=== PATIENT | male | born 1995 | race Caucasian/White ===

== ENCOUNTER 2016-10-25 12:57 | Emergency (ER) | payer OTHER ==
[2016-10-25] MEDS ORDERED: METOCLOPRAMIDE HCL INJ/PF 10 MG/2 ML SDV IV ONE (13:40)
[2016-10-25] MEDS ORDERED: DIPHENHYDRAMINE HCL 50 MG/ML VIAL IV ONE (13:40)
[2016-10-25] MEDS ORDERED: FAMOTIDINE INJ/PF 20 MG/2 ML SDV IV ONE (13:40)
[2016-10-25] MEDS ORDERED: NORMAL SALINE 1000 ML 1,000 ML IV ONE ×2 (13:41→14:52)
--- NOTE | 2016-10-25 13:44 | ER Document Report ---
ED Medical Screen (RME) - General Chief Complaint: Abdominal Pain Stated Complaint: ABDOMINAL PAIN,VOMITING Notes: I briefly seen and evaluated this patient in my role as physician in triage. I have initiated orders based on this initial evaluation. Please see my colleague' s documentation for complete history, physical, management, diagnosis, and ultimate disposition. My brief evaluation: Patient presents complaining of severe burning in his esophagus and pain in his epigastrium. He said this started about a week ago[place] and he was told that this is esophagitis and was started on Prilosec. He was not referred to GI or for further testing. The patient says that he is vomiting now and unable to keep anything down. He said it hurts to swallow. He has a long- standing history of reflux and she was 8 years old. Denies any other medical problems. He says he's had some subjective fevers recently. No cough cold. No other abdominal pain. On exam, patient is alert and oriented in mild distress secondary to discomfort. Chest sounds clear and equal bilaterally. Heart rate and rhythm are normal with no murmurs. Abdomen soft and nontender with normal bowel sounds. Pharynx is clear without erythema or edema. Medical decision making: Have initiated GI workup, giving IV fluids and nausea medications and Pepcid for symptom relief. TRAVEL OUTSIDE OF THE [place] IN LAST 30 DAYS: No - Related Data Allergies/Adverse Reactions: No Known Allergies Allergy (Unverified 10/25/16 13:14) Home Medications: Current Home Medications Omeprazole Magnesium [Prilosec Otc] 20 mg PO DAILY 10/25/16 [History] Past Medical History Renal/ Medical History: Denies: Hx Peritoneal Dialysis Physical Exam - Vital signs Vitals: Temp Pulse Resp BP Pulse Ox 99.1 F 105 H 20 133/77 H 97 10/25/16 13:04 10/25/16 13:04 10/25/16 13:04 10/25/16 13:04 10/25/16 13:04 Course - Vital Signs Vital signs: Temp Pulse Resp BP Pulse Ox 99.1 F 105 H 20 133/77 H 97 10/25/16 13:04 10/25/16 13:04 10/25/16 13:04 10/25/16 13:04 10/25/16 13:04
[2016-10-25 14:02] LABS: ABSOLUTE EOSINOPHILS # (AUTO) 0.2 10^3/uL (0.0-0.6); ABSOLUTE LYMPHOCYTES (AUTO) 2.2 10^3/uL (0.5-4.7); ABSOLUTE MONOCYTES (AUTO) 0.9 10^3/uL (0.1-1.4); ABSOLUTE NEUT (AUTO) 5.4 10^3/uL (1.7-8.2); BASOPHILS % (AUTO) 0.5 % (0-2); EOSINOPHILS % (AUTO) 2.5 % (0-6); HEMATOCRIT 44.2 % (37.9-51.0); HEMOGLOBIN 15.5 g/dL (13.5-17.0); HGB HCT DIFFERENCE 2.3; MEAN CORPUSCULAR HGB CONC 35.1 g/dL (32.0-36.0); MEAN CORPUSCULAR VOLUME 86 fl (80-97); MONOCYTES % (AUTO) 10.3 % (3-13); RED BLOOD COUNT 5.17 10^6/uL (4.35-5.55); RED CELL DISTRIBUTION WIDTH 12.8 % (11.5-14.0); SEGMENTED NEUTROPHILS % (AUTO) 61.7 % (42-78); WHITE BLOOD COUNT 8.8 10^3/uL (4.0-10.5)
--- NOTE | 2016-10-25 14:21 | ER Document Report ---
ED GI/ - General Chief Complaint: Abdominal Pain Stated Complaint: ABDOMINAL PAIN,VOMITING Time seen by provider: 14:21 Mode of Arrival: Ambulatory Information source: Patient Notes: 21-year-old nonsmoker, non-drinker, [employer] complaining of epigastric burning which worsens after eating. He saw his sick call on Friday and they told him he had esophagitis. He does have a history of reflux. 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 Nausea without vomiting today. No diarrhea or constipation. No genitalia pain. He has been taking Prilosec 20 mg a day. TRAVEL OUTSIDE OF THE [place] IN LAST 30 DAYS: No - Related Data Allergies/Adverse Reactions: No Known Allergies Allergy (Unverified 10/25/16 13:14) Home Medications: Current Home Medications Omeprazole Magnesium [Prilosec Otc] 20 mg PO DAILY 10/25/16 [History] Past Medical History - General Information source: Patient - Social History Smoking Status: Never Smoker Frequency of alcohol use: None Drug Abuse: None Lives with: Spouse/Significant other Family History: Reviewed & Not Pertinent Patient has suicidal ideation: No Patient has homicidal ideation: No - Medical History Medical History: Negative Renal/ Medical History: Denies: Hx Peritoneal Dialysis Surgical Hx: Negative Review of Systems - Review of Systems Gastrointestinal: See HPI Physical Exam - Vital signs Vitals: Temp Pulse Resp BP Pulse Ox 99.1 F 105 H 20 133/77 H 97 10/25/16 13:04 10/25/16 13:04 10/25/16 13:04 10/25/16 13:04 10/25/16 13:04 Interpretation: Normal - General General appearance: Appears well, Alert - HEENT Head: Normocephalic, Atraumatic Eyes: Normal Pupils: PERRL - Respiratory Respiratory status: No respiratory distress Chest status: Nontender Breath sounds: Normal Chest palpation: Normal - Cardiovascular Rhythm: Regular Heart sounds: Normal auscultation Murmur: No - Abdominal Inspection: Normal Distension: No distension Bowel sounds: Normal Tenderness: Tender - Mild epigastric and right upper quadrant. No: McBurney's point, Myers's sign, Guarding, Rebound Organomegaly: No organomegaly - Back Back: Normal, Nontender. No: CVA tenderness - Extremities General upper extremity: Normal inspection, Nontender, Normal color, Normal ROM , Normal temperature General lower extremity: Normal inspection, Nontender, Normal color, Normal ROM , Normal temperature, Normal weight bearing. No: Helene's sign - Neurological Neuro grossly intact: Yes Cognition: Normal Orientation: AAOx4 Criss Coma Scale Eye Opening: Spontaneous Criss Coma Scale Verbal: Oriented Criss Coma Scale Motor: Obeys Commands [place] Coma Scale Total: 15 Speech: Normal Motor strength normal: LUE, RUE, LLE, RLE Sensory: Normal - Psychological Associated symptoms: Normal affect, Normal mood - Skin Skin Temperature: Warm Skin Moisture: Dry Skin Color: Normal Skin irregularity: negative: Rash Course - Re-evaluation Re-evalutation: 10/25/16 16:39 Patient is resting, feels better, urine is dark and sent to lab for urinalysis. Gallbladder ultrasound is negative and labs are normal. - Vital Signs Vital signs: Temp Pulse Resp BP Pulse Ox 98.0 F 98 21 H 128/78 H 98 10/25/16 17:02 10/25/16 17:02 10/25/16 17:02 10/25/16 17:02 10/25/16 17:02 - Laboratory Result Diagrams: 10/25/16 13:45 10/25/16 13:45 Laboratory results interpreted by me: 10/25/16 16:37 Urine Ketones 20 H Urine Urobilinogen 2.0 H Discharge - Discharge Clinical Impression: Epigastric abdominal pain, Dehydration Nausea and vomiting Qualifiers: Vomiting type: unspecified Vomiting Intractability: non-intractable Qualified Code(s): R11.2 - Nausea with vomiting, unspecified Condition: Good Disposition: HOME, SELF-CARE Instructions: Abdominal Pain ([facility]), Antinausea Medication ([facility]), Intravenous ( IV) Fluids ([facility]), Vomiting ([facility]), Reglan ([facility]) Additional Instructions: [place] to glass production machine operator Return to the emergency room if symptoms worsen [place] diet Daily proton pump inhibitor Prilosec 20 mg twice a day Please complete the patient satisfaction survey if you get one, and return it.. If you do not receive a survey, then you can go to the [facility] website, [email or web address] and place your comments about your very good care. Thank you very much. It was a pleasure being your medical provider today. Prescriptions: Promethazine HCl [Phenergan 25 mg Tablet] 25 mg PO Q4HP PRN #20 tablet PRN Reason: Metoclopramide HCl [Reglan 10 mg Tablet] 10 mg PO ACHS #30 tablet Referrals: CAL ISAAC MD [Primary Care Provider] - 10/29/16
[2016-10-25 14:22] LABS: ALANINE AMINOTRANSFERASE 32 U/L (21-72); ALBUMIN 4.8 g/dL (3.5-5.0); ALKALINE PHOSPHATASE 67 U/L (38-126); ANION GAP 14 (5-19); ASPARTATE AMINO TRANSFERASE 26 U/L (17-59); BILIRUBIN,DIRECT 0.2 mg/dL (0.0-0.4); BILIRUBIN,TOTAL 0.8 mg/dL (0.2-1.3); BLOOD UREA NITROGEN 16 mg/dL (7-20); CALCIUM 9.7 mg/dL (8.4-10.2); CARBON DIOXIDE 28 mmol/L (22-30); CHLORIDE 101 mmol/L (98-107); GLUCOSE 86 mg/dL (75-110); POTASSIUM 4.7 mmol/L (3.6-5.0); SODIUM 143.3 mmol/L (137-145)
[2016-10-25 14:23] LABS: LIPASE 65.9 U/L (23-300); TOTAL PROTEIN 7.4 g/dL (6.3-8.2)
[2016-10-25] MEDS ORDERED: LIDOCAINE 2% VISCOUS SOLN 20 ML UDCUP PO ONE (14:53)
[2016-10-25] MEDS ORDERED: MAG HYDROX/AL HYDROX/SIMETH SUSP 30 ML UDCUP PO ONE (14:53)
[2016-10-25 17:04] VITALS: BP 128/78
[2016-10-25 17:06] LABS: APPEARANCE,URINE CLEAR; BILIRUBIN,URINE NEGATIVE (NEGATIVE); GLUCOSE, URINE NEGATIVE (NEGATIVE); KETONES,URINE 20 mg/dL (NEGATIVE); LEUKOCYTE ESTERASE,URINE NEGATIVE (NEGATIVE); NITRITE,URINE NEGATIVE (NEGATIVE); PROTEIN,URINE NEGATIVE (NEGATIVE); URINE SPECIFIC GRAVITY 1.026
== END 2016-10-25 17:23 | disposition home or self-care (01) ==
LOC: ER 12:57
DX: R10.13 Epigastric pain (principal); E86.0 Dehydration; R11.2 Nausea with vomiting, unspecified
CPT/HCPCS: 99284; 96361; 96374; 96375; 36415; 83690; 85025; 82272; 80053; 81001; 76705; J1200; J3490; J2765; J7030; S0028

== ENCOUNTER 2016-11-07 00:53 | Emergency (ER) | payer OTHER | END 2016-11-07 01:55 | disposition left against medical advice (07) | LOC: ER 00:53 | DX: Z53.9 Procedure and treatment not carried out, unspecified reason (principal); K92.0 Hematemesis ==